=== PATIENT | female | born 2000 | race Caucasian/White ===

== ENCOUNTER 2025-03-17 18:53 | Inpatient (IN) | payer MEDICAID ==
[2025-03-17] MEDS ORDERED: Ondansetron 4 MG/2 ML SDV IVPUSH PRN (19:29)
[2025-03-17] MEDS ORDERED: Nalbuphine 10 MG/1 ML Vial IVPUSH PRN (19:29)
[2025-03-17] MEDS: Lactated Ringers 1,000 ML IV SCH (19:38)
[2025-03-17 19:54] LABS: BASOPHILS ABSOLUTE AUTO 0.0 K/mm3 (0.0-0.2); BASOPHILS PERCENT AUTO 0.1 % (0.0-1.0); EOSINOPHILS ABSOLUTE AUTO 0.0 K/mm3 (0.0-0.4); EOSINOPHILS PERCENT AUTO 0.1 % (0.0-6.0); IMMATURE GRAN ABSOLUTE AUTO 0.08 K/mm3 (0.00-0.05); IMMATURE GRAN PERCENT AUTO 0.6 % (0.0-0.4); LYMPHOCYTES ABSOLUTE AUTO 1.3 K/mm3 (1.0-4.8); LYMPHOCYTES PERCENT AUTO 9.2 % (24.0-44.0); MEAN PLATELET VOLUME 11.5 fl (9.4-12.3); MONOCYTES ABSOLUTE AUTO 0.3 K/mm3 (0.0-0.8); MONOCYTES PERCENT AUTO 2.2 % (0.0-8.0); NEUTROPHILS ABSOLUTE AUTO 12.2 K/mm3 (1.8-7.7); NEUTROPHILS PERCENT AUTO 87.8 % (41.0-71.0); NRBC ABSOLUTE 0.00 (0.00-0.02); NRBC PERCENT 0.0 % (0.0-0.2); PLATELET COUNT,PLT 195 K/mm3 (150-400); RED BLOOD CELL COUNT 4.23 M/mm3 (4.10-5.30); WHITE BLOOD CELL COUNT,WBC 13.85 K/mm3 (3.9-11.3)
[2025-03-17] MEDS ORDERED: ePHEDrine 50 MG/ML SDV IVPUSH PRN (20:07)
[2025-03-17] MEDS ORDERED: diphenhydrAMINE 50 MG/ML SDV IVPUSH PRN (20:07)
[2025-03-17] MEDS: Bupivacaine/fentaNYL/NS 100 ML Bag EPIDUR PRN (20:30)
[2025-03-17] MEDS: ePHEDrine 50 MG/ML SDV IVPUSH ONE ×2 (20:30→20:34)
[2025-03-17] MEDS: Oxytocin/0.9 % Sodium Chloride 30 UNIT/500 ML BAG IV SCH (22:30)
[2025-03-17] MEDS: Witch Hazel Medicated Pads 40/Jar TOP PRN (23:14)
[2025-03-17] MEDS: Benzocaine/Menthol 20%-0.5% Spray 78 GM Cannister TOP PRN (23:14)
[2025-03-18] MEDS: SODIUM CHLORIDE 0.9% IV ONE (12:45)
[2025-03-18] MEDS: COSYNTROPIN IV ONE (12:45)
[2025-03-19] MEDS: SODIUM CHLORIDE 0.9% IV ONE (09:06)
[2025-03-19] MEDS: COSYNTROPIN IV ONE (09:06)
[2025-03-19] MEDS: Acetaminophen/Butalbital/Caffeine 325-50-40 MG Tab PO PRN (12:54)
[2025-03-19] MEDS: DESVENLAFAXINE SUCCINATE PO SCH (17:05)
== END 2025-03-20 15:05 | disposition home or self-care (01) | DRG 807 ==
LOC: JD.OBCHECK 18:53 → JD.OB 18:54 → JD.OBCHECK 19:29 → JD.OB 19:29 → OBSVTOIN 22:44 → JD.OB 03-18 02:53
PROVIDERS: ADMIT Obstetrics & Gynecology; ATTEND Obstetrics & Gynecology
PROC: 3E0R3GC Introduction of Other Therapeutic Substance into Spinal Canal, Percutaneous Approach (ICD-10-PCS; principal; 2025-03-17)
PROC: 10907ZC Drainage of Amniotic Fluid, Therapeutic from Products of Conception, Via Natural or Artificial Opening (ICD-10-PCS; principal; 2025-03-17)
PROC: 10E0XZZ Delivery of Products of Conception, External Approach (ICD-10-PCS; principal; 2025-03-17)
PROC: 3E0R3BZ Introduction of Anesthetic Agent into Spinal Canal, Percutaneous Approach (ICD-10-PCS; principal; 2025-03-17)
DX: O60.14X0 Preterm labor third trimester with preterm delivery third trimester, not applicable or unspecified (principal); Z37.0 Single live birth; O99.892 Other specified diseases and conditions complicating childbirth; Z3A.36 36 weeks gestation of pregnancy; G97.1 Other reaction to spinal and lumbar puncture; Z88.0 Allergy status to penicillin; Z79.899 Other long term (current) drug therapy; Z98.890 Other specified postprocedural states; O69.81X0 Labor and delivery complicated by cord around neck, without compression, not applicable or unspecified; R51.9 Headache, unspecified
CPT/HCPCS: 01967; 36415; 51701; 51702; 59025; 59409; 85025; 86592; A9270-GY; C1758; J0834; J3490; J7120; J7999